=== PATIENT | male | born 1990 | race Caucasian/White ===

== ENCOUNTER 2018-01-02 14:20 | Emergency (ER) | payer OTHER ==
[2018-01-02 15:09] VITALS: RESP 18; TEMP 98.3
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
[2018-01-02 17:39] VITALS: BP 129/77; PULSE 82; O2SAT 99
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
--- NOTE | 2018-01-02 19:10 | CARD ---
APPROVED REPORT Date of service: 01/02/2018 EKG Measurement [id number] <Conclusion> Normal sinus rhythm Normal ECG
== END 2018-01-02 17:41 | disposition home or self-care (01) ==
LOC: ED 14:20
DX: S20.219A Contusion of unspecified front wall of thorax, initial encounter (principal); V49.49XA Driver injured in collision with other motor vehicles in traffic accident, initial encounter; W22.11XA Striking against or struck by driver side automobile airbag, initial encounter; Y92.410 Unspecified street and highway as the place of occurrence of the external cause
CPT/HCPCS: 71046; 71120; 93005; 96372; 99283; J1885

== ENCOUNTER 2018-04-30 10:11 | Emergency (ER) | payer MEDICAID, OTHER | END 2018-04-30 10:26 | disposition left against medical advice (07) | LOC: ED 10:11 | DX: Z02.89 Encounter for other administrative examinations (principal); R07.0 Pain in throat ==